=== PATIENT | male | born 1990 | race Caucasian/White ===

== ENCOUNTER → 2016-07-05 | Outpatient (CLI) | payer OTHER | LOC: FIMAGING 16:49 | PROVIDERS: ATTEND Otolaryngology | DX: Z09 Encounter for follow-up examination after completed treatment for conditions other than malignant neoplasm (principal); Z98.890 Other specified postprocedural states ==

== ENCOUNTER 2016-08-26 11:10 | Emergency (ER) | payer OTHER ==
--- NOTE | 2016-08-26 11:40 | EDPHY ---
H & P Time Seen by Provider: 08/26/16 11:26 HPI/ROS: CHIEF COMPLAINT: Right ankle and foot pain HISTORY OF PRESENT ILLNESS: 25-year-old male arrives via private vehicle complaining of acute right lateral ankle and right dorsal foot pain after he was bouldering at [employer] the fell approximately 2 feet and inverted his right foot. He felt 3 pops. Complaining of acute right dorsal foot pain and right lateral ankle pain. No proximal tibia or fibula pain. No calcaneal pain. No back pain. He landed on a padded service but did roll his ankle. PHYSICAL EXAM (Prior to examination, patient consented to physical exam, hands were washed and my usual and customary physical exam procedures followed) 1) GENERAL: Well-developed, well-nourished, alert and oriented. Appears to be in no acute distress. 2) HEAD: Normocephalic 3) HEENT: Pupils equal, round, reactive to light bilaterally. 4) LUNGS: Breathing comfortably. 5) MUSCULOSKELETAL: Lateral malleolus tender to palpation with soft tissue swelling noted. Dorsal midfoot tender to palpation with soft tissue swelling noted. proximal tibia and fibula nontender .5th MT nontender negative Wong test, compartments soft. Fibular head nontender 6) SKIN: intact 7) VASCULAR: DP,PT pulses and cap refill present and brisk DIFFERENTIAL DIAGNOSIS: in no particular order including but not limited to fracture, sprain, compartment syndrome Procedure: Crutches indications for crutch use discussed with patient. Patient fitted for crutches by ER staff. Observed ambulating with crutches. I think the patient has the capacity to safely use crutches. Usual and customary crutch walking precautions provided Procedure: Splint A Jj boot splint was applied by ER control systems technician. After application of the splint I returned and re-examined the patient. The splint was adequately immobilizing the joint and distal to the splint the patient's circulation and sensation were intact. Patient shows no signs of compartment syndrome. Was given orthopedic precautions. Smoking Status: Never smoked Constitutional: Initial Vital Signs Temperature (C) 36.7 C 08/26/16 11:22 Heart Rate 92 08/26/16 11:22 Respiratory Rate 17 08/26/16 11:22 Blood Pressure 124/82 H 08/26/16 11:22 O2 Sat (%) 96 08/26/16 11:22 O2 Delivery Mode Room Air Allergies/Adverse Reactions: codeine Allergy (Severe, Verified 08/26/16 11:21) Anaphylaxis Home Medications: Medication Instructions Recorded Afrin 04/19/15 Flonase Nasal Surrency 04/19/15 IMITREX 08/26/16 Ibuprofen [Motrin (*)] 800 mg PO Q6 #15 tab 08/26/16 MDM/Departure - [facility] Imaging Results: Imaging Impressions Ankle X-Ray 08/26/16 11:37 Impression: 1. Displaced lateral talar avulsion fracture. 2. No definite malleolar fracture. Foot X-Ray 08/26/16 11:37 Impression: Lateral talar avulsion fracture. Images reviewed myself Imaging: I viewed and interpreted images myself ED Course/Re-evaluation: There is a questionable small avulsion fracture lateral talus. Patient has been placed in Corona boot. Is neuro intact. Doubt fibular head injury/ fracture. Plan with follow up with Orthopedics. Soft compartments. Given usual and customary orthopedic and compartment syndrome precautions and instructions. - Depart Disposition: Home, Routine, Self-Care Clinical Impression: Right foot sprain Qualifiers: Encounter type: initial encounter Qualified Code(s): S93.601A - Unspecified sprain of right foot, initial encounter Closed right ankle fracture Qualifiers: Encounter type: initial encounter Qualified Code(s): S82.891A - Other fracture of right lower leg, initial encounter for closed fracture Condition: Good Instructions: Ankle Fracture (ED), Foot Sprain (ED) Additional Instructions: Return to the ER immediately if you experience discoloration, have worsening pain, numbness, tingling, or any other symptoms that concern you. If you received x-rays in the emergency department today, be advised, that ligamentous , tendon, muscular, and other non-bony injury cannot be fully ruled out. Try to keep your affected extremity elevated above the level of your chest, and keep cold packs on the affected area, for the next 48 hours. Prescriptions: Ibuprofen [Motrin (*)] 800 mg PO Q6 #15 tab Referrals: Angelo Jimenez MD [Medical Doctor] - 5-7 days, call for appt.
[2016-08-26 12:32] VITALS: BP 114/69; PULSE 84; RESP 16; TEMP 98.4; O2SAT 94
== END 2016-08-26 12:31 | disposition home or self-care (01) ==
DX: S92.151A Displaced avulsion fracture (chip fracture) of right talus, initial encounter for closed fracture (principal); S93.601A Unspecified sprain of right foot, initial encounter; W17.89XA Other fall from one level to another, initial encounter
CPT/HCPCS: L4386

== ENCOUNTER 2016-12-31 12:10 | Observation (INO) | payer OTHER ==
[2016-12-31] MEDS ORDERED: ONDANSETRON 4 MG/2 ML VIAL ONE ×2 (13:01→15:44)
--- NOTE | 2016-12-31 13:05 | EDPHY ---
HPI/HX/ROS/PE/MDM Narrative: CHIEF COMPLAINT: Abdominal pain HPI: The patient is a 26 y/o male with a history of varicocele correction at age 8 complaining of abdominal pain onset 6:00 AM this morning, 7 hours ago. He has had a cold but has been improving. He awoke this morning with an intense pain in his lower abdomen that has slowly been moving into his lower right quadrant. His pain does extend into the left side of his testicles. He has associated vomiting and chills. He is afebrile. He has only eaten a handful of cracker this morning. REVIEW OF SYSTEMS: Aside from elements discussed in the HPI, a comprehensive 10-point review of systems was reviewed and is negative. PMH: Varicocele correction at age 8 SOCIAL HISTORY: at bedside, lives in [facility] PHYSICAL EXAM: General:Patient is alert, in no acute distress. ENT:Eyes are normal to inspection. ENT inspection normal. Neck: Normal inspection. Full range of motion. Respiratory:No respiratory distress. Breath sounds normal bilaterally. Cardiovascular: Regular rate and rhythm. Normal cap refill. Abdomen: Moderate tenderness at McBurney's Point. There are no peritoneal signs. There are normal bowel sounds. Back: Normal to inspection. No tenderness to palpation. Skin: Normal color. No rash. Warm and dry. Extremities: Normal appearance. Full range of motion. Neuro: Oriented x3. Normal motor function. Normal sensory function. ED Course: Study: CT of the abdomen Indication: Abdominal pain Results: CT scan of the abdomen was obtained. The results of the study are: acute appendicitis The study was read by the radiologist, Dr. March. I viewed the images myself on the PACS system. 1437: I spoke with Dr. March, radiology, who confirms appendicitis. 1446: I spoke with Dr. Love, surgery, who will admit patient. 1447: I reassessed patient and informed him of the results of his workup. He will be admitted to Dr. Love for surgery. He agrees to this course of action. - Data Points Imaging Results: Imaging Impressions Abdomen CT 12/31/16 13:11 Impression: Acute appendicitis. Results called to Dr. Reginald Barillas at 2:30 PM. Imaging: Discussed imaging studies w/ mover helper Radiologist, I viewed and interpreted images myself Laboratory Results: Laboratory Results 12/31/16 13:00 12/31/16 13:00 12/31/16 12/31/16 12/31/16 13:00 13:00 12:56 WBC 17.69 10^3/uL H 10^3/uL (3.80-9.50) RBC 5.38 10^6/uL 10^6/uL (4.40-6.38) Hgb 16.9 g/dL g/dL (13.7-17.5) POC Hgb 17.7 gm/dL H gm/dL (13.7-17.5) Hct 47.1 % % (40.0-51.0) POC Hct 52 % H % (40-51) MCV 87.5 fL fL (81.5-99.8) MCH 31.4 pg pg (27.9-34.1) MCHC 35.9 g/dL g/dL (32.4-36.7) RDW 11.8 % % (11.5-15.2) Plt Count 224 10^3/uL 10^3/uL (150-400) MPV 10.1 fL fL (8.7-11.7) Neut % (Auto) 82.0 % H % (39.3-74.2) Lymph % (Auto) 12.3 % L % (15.0-45.0) [place] % (Auto) 4.8 % % (4.5-13.0) Eos % (Auto) 0.3 % L % (0.6-7.6) Baso % (Auto) 0.2 % L % (0.3-1.7) Nucleat RBC Rel Count 0.0 % % (0.0-0.2) Absolute Neuts (auto) 14.52 10^3/uL H 10^3/uL (1.70-6.50) Absolute Lymphs (auto) 2.17 10^3/uL 10^3/uL (1.00-3.00) Absolute Monos (auto) 0.85 10^3/uL H 10^3/uL (0.30-0.80) Absolute Eos (auto) 0.05 10^3/uL 10^3/uL (0.03-0.40) Absolute Basos (auto) 0.03 10^3/uL 10^3/uL (0.02-0.10) Absolute Nucleated RBC 0.00 10^3/uL 10^3/uL (0-0.01) Immature Gran % 0.4 % % (0.0-1.1) Immature Gran # 0.07 10^3/uL 10^3/uL (0.00-0.10) POC Sodium 137 mEq/L mEq/L (134-144) Sodium 139 mEq/L mEq/L (134-144) POC Potassium 3.7 mEq/L mEq/L (3.3-5.0) Potassium 4.1 mEq/L mEq/L (3.5-5.2) POC Chloride 98 mEq/L mEq/L (97-110) Chloride 98 mEq/L mEq/L (97-110) Carbon Dioxide 26 mEq/l mEq/l (22-31) Anion Gap 15 mEq/L mEq/L (8-16) POC BUN 14 mg/dL mg/dL (7-23) BUN 14 mg/dL mg/dL (7-23) Creatinine 0.9 mg/dL mg/dL (0.7-1.3) POC Creatinine 1.0 mg/dL mg/dL (0.7-1.3) Estimated GFR > 60 Glucose 80 mg/dL mg/dL (70-100) POC Glucose 90 mg/dL mg/dL (70-100) Calcium 9.9 mg/dL mg/dL (8.5-10.4) Medications Given: Ertapenem 1 gm/ Sodium (Chloride) 100 mls @ 200 mls/hr IV EDNOW ONE PRN Reason: Protocol Stop: 12/31/16 15:16 Last Admin: 12/31/16 15:03 Dose: 100 mls Discontinued Medications Sodium Chloride (Ns) 1,000 mls @ 0 mls/hr IV EDNOW ONE PRN Reason: Wide Open Stop: 12/31/16 13:15 Last Admin: 12/31/16 13:15 Dose: 1,000 mls Sodium Chloride (Ns) 1,000 mls @ 0 mls/hr IV EDNOW ONE PRN Reason: Wide Open Stop: 12/31/16 14:57 Last Admin: 12/31/16 14:57 Dose: 1,000 mls Ketorolac Tromethamine (Toradol) 15 mg IVP EDNOW ONE Stop: 12/31/16 13:11 Last Admin: 12/31/16 13:16 Dose: 15 mg Ondansetron HCl (Zofran) 4 mg IVP EDNOW ONE Stop: 12/31/16 13:15 Last Admin: 12/31/16 13:16 Dose: 4 mg Point of Care Test Results: 12/31/16 12:56 POC Sodium 137 POC Potassium 3.7 POC Chloride 98 POC BUN 14 POC Creatinine 1.0 POC Glucose 90 General Time Seen by Provider: 12/31/16 12:52 Initial Vital Signs: Initial Vital Signs Temperature (C) 37.0 C 12/31/16 12:24 Heart Rate 80 12/31/16 12:24 Respiratory Rate 18 12/31/16 12:24 Blood Pressure 127/78 H 12/31/16 12:24 O2 Sat (%) 99 12/31/16 12:24 O2 Delivery Mode Room Air Allergies/Adverse Reactions: codeine Allergy (Severe, Verified 12/31/16 12:27) Anaphylaxis Home Medications: Medication Instructions Recorded IMITREX 08/26/16 Ibuprofen [Motrin (*)] 800 mg PO Q6 #15 tab 08/26/16 Departure - Departure Disposition: [facility] Acute Clinical Impression: Acute appendicitis Qualifiers: Acute appendicitis type: unspecified acute appendicitis type Qualified Code(s) : K35.80 - Unspecified acute appendicitis Condition: Fair Report Scribed for: Reginald Barillas Report Scribed by: Soraida Mckeon Date of Report: 12/31/16 Time of Report: 13:29 Physician Review and Approval Statement: Portions of this note were transcribed by an ED scribe. I personally performed the history, physical exam, and medical decision making; and confirm the accuracy of the information in the transcribed note.
[2016-12-31] MEDS ORDERED: KETOROLAC 30 MG/1 ML SDV IVP ONE (13:10)
[2016-12-31 13:13] LABS: % IMMATURE GRANULYOCYTES 0.4 % (0.0-1.1); ABSOLUTE IMMATURE GRANULOCYTES 0.07 10^3/uL (0.00-0.10); ADD DIFF? NO; ADD MORPH? NO; ADD SCAN? NO; ATYPICAL LYMPHOCYTE FLAG 10 (0-99); FRAGMENT RBC FLAG 0 (0-99); HEMATOCRIT 47.1 % (40.0-51.0); HEMOGLOBIN 16.9 g/dL (13.7-17.5); LEFT SHIFT FLG 0 (0-99); LIPEMIA HEMOLYSIS FLAG 90 (0-99); MEAN CELL HEMOGLOBIN 31.4 pg (27.9-34.1); MEAN CELL HEMOGLOBIN CONCENTR. 35.9 g/dL (32.4-36.7); MEAN CELL VOLUME 87.5 fL (81.5-99.8); MEAN PLATELET VOLUME 10.1 fL (8.7-11.7); PLATELET CLUMPS FLAG 20 (0-99); PLATELET COUNT 224 10^3/uL (150-400); RED BLOOD CELL COUNT 5.38 10^6/uL (4.40-6.38); RED CELL DISTRIBUTION WIDTH 11.8 % (11.5-15.2)
[2016-12-31] MEDS ORDERED: ONDANSETRON 4 MG/2 ML VIAL IVP ONE (13:14)
[2016-12-31] MEDS ORDERED: NS 1,000 ML IV ONE ×2 (13:14→14:56)
[2016-12-31 13:49] LABS: ANION GAP 15 mEq/L (8-16); CALCIUM 9.9 mg/dL (8.5-10.4); CARBON DIOXIDE 26 mEq/l (22-31); CHLORIDE 98 mEq/L (97-110); CREATININE 0.9 mg/dL (0.7-1.3); GLOMERULAR FILTRATION RATE > 60; GLUCOSE 80 mg/dL (70-100); POTASSIUM 4.1 mEq/L (3.5-5.2); SODIUM 139 mEq/L (134-144)
[2016-12-31] MEDS ORDERED: IOPAMIDOL (ISOVUE-300) 100 ML BTL ONE (13:59)
[2016-12-31] MEDS ORDERED: ERTAPENEM 1 GM in NS 100 ML IV ONE (14:47)
[2016-12-31] MEDS ORDERED: ceFAZolin 1 GM/5 ML SYR ONE (15:27)
[2016-12-31] MEDS ORDERED: HEPARIN 5,000 UNIT/0.5 ML SYR ONE (15:28)
[2016-12-31] MEDS ORDERED: MIDAZOLAM 2 MG/2 ML VIAL IVP ONE (15:41)
--- NOTE | 2016-12-31 15:41 | PDANEPAE ---
ANE History of Present Illness acute appendicitis ANE Past Medical History - Cardiovascular History Hx Hypertension: No Hx Arrhythmias: No Hx Chest Pain: No Hx Coronary Artery / Peripheral Vascular Disease: No Hx CHF / Valvular Disease: No Hx Palpitations: No - Pulmonary History Hx COPD: No Hx Asthma/Reactive Airway Disease: No Hx Recent Upper Respiratory Infection: No Hx Oxygen in Use at Home: No Hx Sleep Apnea: No - Endocrine History Hx Diabetes: No Hypothyroid: No Hyperthyroid: No Obesity: no ANE Review of Systems Review of systems is: negative Review of Systems: - Exercise capacity Exercise capacity: >=4 METS ANE Patient History - Allergies Allergies/Adverse Reactions: codeine Allergy (Severe, Verified 12/31/16 12:27) Anaphylaxis - Home Medications Home medications: home medication list seen and reviewed Home Medications: IMITREX 08/26/16 [Last Taken Unknown] - Anes Hx Anes Hx: no prior problems - Smoking Hx Smoking Status: Never smoked - Alcohol Use Alcohol Use: None ANE Labs/Vital Signs - Labs Result Diagrams: 12/31/16 13:00 12/31/16 13:00 - Vital Signs Blood Pressure: 132/79 Heart Rate: 84 Respiratory Rate: 18 O2 Sat (%): 95 Height: 185.42 cm Weight: 74.843 kg ANE Physical Exam - Airway Neck exam: FROM Mallampati Score: Class 2 Mouth exam: normal dental/mouth exam - Pulmonary Pulmonary: no respiratory distress - Cardiovascular Cardiovascular: regular rate and rhythym - ASA Status ASA Status: I, E ANE Anesthesia Plan Anesthesia Plan: general endotracheal anesthesia
[2016-12-31] MEDS ORDERED: DEXAMETHASONE 4 MG/ML VIAL ONE (15:44)
[2016-12-31] MEDS ORDERED: fentaNYL 100 MCG/2 ML INJ ONE ×3 (15:44→17:17)
[2016-12-31] MEDS ORDERED: ROCURONIUM 50 MG/5 ML VIAL ONE (15:44)
[2016-12-31] MEDS ORDERED: LIDOCAINE 2% 5 ML SDV ONE (15:44)
[2016-12-31] MEDS ORDERED: SUGAMMADEX SODIUM 200 MG/2 ML VIAL IVP ONE (15:44)
[2016-12-31] MEDS ORDERED: PROPOFOL 200 MG/20 ML VIAL ONE (15:44)
[2016-12-31] MEDS ORDERED: MIDAZOLAM 2 MG/2 ML VIAL ONE (15:54)
[2016-12-31] MEDS ORDERED: ONDANSETRON 4 MG/2 ML VIAL IVP PRN ×2 (16:02→17:11)
[2016-12-31] MEDS ORDERED: NON-FORMULARY NEW DRUG (Sumatriptan Succinate [Imitrex] 100 MG) PO PRN (16:06)
--- NOTE | 2016-12-31 16:08 | GHP ---
[f rep st] PREOP HISTORY AND PHYSICAL DATE OF ADMISSION: 12/31/2016 ADMITTING DIAGNOSIS: Acute appendicitis. HISTORY OF PRESENT ILLNESS: The patient is a 26-year-old male who was awoken from sleep this morning due to a band-like pain that extended across his abdomen from [id number]. As the morning wore on, the pain became more localized to the right lower quadrant. He was not hungry and had only saltines for breakfast. He had a small amount of water at noon. He had nausea during the course of the morning and did vomit on admission to the ER. He is known to have irritable bowel syndrome. He does have a recent upper respiratory tract infection. He chronically has loose stools because of his irritable bowel but has noticed no change in his stool pattern. He has not had had any antibiotics or travel outside the [place] in the last 6 months. He has had no prior similar symptoms. He did have an open surgery for a varicocele and a right undescended testicle. SOCIAL HISTORY: He smoked from ages 16 to 20 at 1 pack per week. He does not drink. After having his wisdom tooth extraction, he became somewhat blue and hypoxic. It was attributed to codeine but that remains unclear. MEDICATIONS: He takes Imitrex 100 mg as needed for migraine headaches. PAST SURGICAL HISTORY: Include a tonsillectomy and wisdom tooth extraction. The wisdom tooth extraction was the event where he had the hypoxia. He also has had a complication of a chronic sinus issue since that time. There is no history of rheumatic fever, tuberculosis, hepatitis, or transfusions. REVIEW OF SYSTEMS: He has had 2 concussions. Review of systems is otherwise quite negative. There are no limits on his activities. No history of steroid use. PHYSICAL EXAMINATION: GENERAL: He is awake and alert. HEENT: His skull is normocephalic and atraumatic. NECK: Unremarkable cervically. There are no carotid bruits. There is no thyroid enlargement. LYMPHATICS: There is no cervical, supraclavicular, axillary or inguinal lymphadenopathy. LUNGS: Clear to auscultation. CARDIAC: Exam shows S1, S2 to be normal. Normal split of S2 without murmurs, rubs, or gallops. ABDOMEN: Hypoactive bowel sounds. It is tender with cough at 3 at McBurney's point. Psoas and obturator signs are negative. To palpation, the abdomen is 1 on a scale of 1-10 in the left upper quadrant, 1 in the mid abdomen, 1 in the left lower quadrant, 1 in the epigastrium, 2 at the periumbilical region, 1 at the suprapubic area, 1 at the right upper quadrant, 5 at the right mid abdomen, 1 at the right lower quadrant and 1 over the iliac crest. EXTREMITIES: His legs are unremarkable. His upper extremities are unremarkable. LABORATORY DATA: His white count is 17.7 with 82% neutrophils. A CT of his abdomen shows an acute appendicitis. His initial temperature was 37 and has now dropped to 36.6. Blood pressure 132/ 79 at 96. Respirations 18. Sat is 95% on room air. I have explained the pathophysiology of appendicitis and what to expect with surgery. He understands the planned procedure and agrees to proceed as outlined. /[id number]/MODL MTDD
[2016-12-31] MEDS ORDERED: ACETAMINOPHEN 325 MG TAB PO SCH (16:15)
[2016-12-31] MEDS ORDERED: LR 1,000 ML IV SCH (16:30)
[2016-12-31] MEDS ORDERED: KETOROLAC 30 MG/1 ML SDV ONE (16:54)
[2016-12-31] MEDS ORDERED: PROMETHAZINE HCL 25 MG/ML INJ IVP PRN (17:11)
[2016-12-31] MEDS ORDERED: ACETAMINOPHEN 500 MG TAB PO PRN (17:11)
[2016-12-31] MEDS ORDERED: ALBUTEROL 3 ML DEYVIAL IH PRN (17:11)
[2016-12-31] MEDS ORDERED: METOCLOPRAMIDE 10 MG/2 ML VIAL IVP PRN (17:11)
[2016-12-31] MEDS ORDERED: LR 500 ML IV PRN (17:11)
[2016-12-31] MEDS ORDERED: HYDROmorphONE/DILAUDID 1 MG/ML INJ IVP PRN (17:11)
[2016-12-31] MEDS ORDERED: NALOXONE HCL 0.4 MG/ML INJ IVP PRN (17:11)
--- NOTE | 2016-12-31 17:11 | POSTANESTH ---
Post Anesthetic Evaluation Cardiovascular Status: Normal, Stable Respiratory Status: Normal, Stable Level of Consciousness/Mental Status: Can Participate in Eval Pain Control: Adequate, Prn Tx Ordered Nausea/Vomiting Control: Adequate, Prn Tx Ordered Complications Possibly Related to Anesthesia: None Noted
--- NOTE | 2016-12-31 17:18 | POSTOPPROG ---
Post Op Note Date of Operation: 12/31/16 Surgeon: Jw Love Anesthesia: GET(General Endotracheal) Pre-op Diagnosis: acute unruptured appendicitis Post-op Diagnosis: acute unruptured appendicitis Indication: acute unruptured appendicitis Procedure: laparoscopic appendectomy Findings: acute unruptured appendicitis Inf/Abcess present in the surg proc area at time of surgery?: No EBL: Minimal Total fluids administered: 650 in OR, 1000 cc in ER Complications: none Specimen(s): appendix
[2016-12-31] MEDS: fentaNYL 100 MCG/2 ML INJ IVP PRN ×2 (17:31→17:37)
[2016-12-31] MEDS: KETOROLAC 15 MG/1 ML SDV IVP SCH ×2 (18:57→23:40)
[2016-12-31 19:31] VITALS: RESP 16
[2016-12-31] MEDS: HYDROmorphONE/DILAUDID 2 MG TAB PO PRN ×2 (19:49→21:17)
[2016-12-31] MEDS: ACETAMINOPHEN 500 MG TAB PO SCH (21:29)
[2016-12-31 23:32] LABS: COLOR COLORLESS; LEUKOCYTE ESTERASE,URINE NEGATIVE (NEGATIVE); NITRITE,URINE NEGATIVE (NEGATIVE)
--- NOTE | 2017-01-01 05:39 | GOP ---
[f rep st] OPERATIVE REPORT DATE OF OPERATION: 12/31/2016 SURGEON: Jw Love MD PREOPERATIVE DIAGNOSIS: Acute appendicitis. POSTOPERATIVE DIAGNOSIS: Acute unruptured appendicitis. PROCEDURE PERFORMED: Laparoscopic appendectomy. FINDINGS: Acute unruptured appendicitis. SPECIMENS: Appendix. ESTIMATED BLOOD LOSS: Minimal. INDICATIONS: Acute unruptured appendicitis. DESCRIPTION OF PROCEDURE: The patient is placed on the operating table in supine position. After induction of adequate general endotracheal anesthesia the abdomen is carefully clipped, prepped and draped. A curvilinear incision is planned at the umbilicus, a transverse incision is planned in the suprapubic region, and an oblique incision is planned in the left lower quadrant. The skin is incised at all points and dissection is continued with Bovie electrocautery in the subcutaneous fat in the suprapubic and left lower quadrant incisions. A spreading technique is used to expose the right and left anterior rectus sheath. The fascia is divided in the midline. A pursestring of 0 - PDS was placed. The peritoneum is entered. The Bry 12 mm disposable trocar is introduced. Intraabdominal insufflation is carried out to 15 mmHg. The patient is placed in a 20-degree Trendelenburg position and rotated 5 degrees to the left. The 5 mm port is placed under direct vision. The suprapubic port is placed under direct vision. In examining the pelvis, there is a translucent fluid present. The appendix is embedded in inflammatory adhesions in the right lower quadrant. These are carefully lysed using a Harmonic scalpel, going right alongside the appendix to minimize injury to any adjacent structures. The dissection is continued down to the appendical base on the cecum. A 35 mm powered Endo-RAKESH stapler is used to transect the appendix with a cuff of cecum. The specimen is removed in an EndoCatch bag. Pneumoperitoneum is reestablished. There is a small bleeding point at the mesenteric edge of the appendiceal staple line. This is elevated with a right- angle clamp and an Endoloop is placed around it. This controls the bleeding completely. Irrigation is carried out with heparin and Ancef-containing irrigant. The small bowel was run for a distance of 3 feet. Mesenteric adenitis was not seen. A Meckel's diverticulum was not seen. Ports are now removed under direct vision. A simple [id number] suture is placed in the midline of the infraumbilical fascial incision. The pursestring is tied first, then a simple [id number] suture is tied. The subcutaneous tissue is well irrigated. Hemostasis is found to be excellent. All skin incisions are closed in inverted simple sutures of #4-0 Vicryl. Mastisol and Steri-Strips were placed. Band- Aids are positioned. The patient was transferred to recovery in stable and satisfactory condition. FLUIDS: 1000 cc in the ER and 650 cc in the OR. COMPLICATIONS: None. /[id number]/MODL MTDD
[2017-01-01] MEDS: KETOROLAC 15 MG/1 ML SDV IVP SCH (05:58)
[2017-01-01] MEDS: ACETAMINOPHEN 500 MG TAB PO SCH (06:01)
[2017-01-01 07:23] VITALS: BP 123/83; PULSE 61; TEMP 97.6; O2SAT 98
[2017-01-01] MEDS: HYDROmorphONE/DILAUDID 2 MG TAB PO PRN ×2 (07:23→11:39)
--- NOTE | 2017-01-01 11:14 | SOAPPROG ---
SOAP Progress Note Assessment/Plan: POD#1 01/01/17 11:05 Assessment: Doing well. eating, passing flatus, pain controlled Plan: Home today Subjective: No complaints Objective: Vital Signs Temp Pulse Resp BP Pulse Ox 36.4 C 61 16 123/83 H 98 01/01/17 07:15 01/01/17 07:15 01/01/17 07:15 01/01/17 07:15 01/01/17 07:15 12/31/16 01/01/17 01/02/17 05:59 05:59 05:59 Intake Total 4150 Output Total 1612 Balance 2538 - Time Spent With Patient Time Spent With Patient: 15 Physical Exam - Physical Exam General Appearance: WD/WN, alert, no apparent distress Neck: non-tender, full range of motion, supple Respiratory: lungs clear, normal breath sounds, respiratory distress Cardiac/Chest: regular rate, rhythm Abdomen: non-tender, soft Male Genitalia: deferred Rectal: deferred Back: Normal inspection Skin: normal color, warm/dry Neuro/Psych: no motor/sensory deficits, alert, normal mood/affect, oriented x 3 ICD10 Worksheet Patient Problems: Problems Problem Status Onset Acute appendicitis Acute
--- NOTE | 2017-01-01 12:05 | GDS ---
[f rep st] DISCHARGE SUMMARY SURGERY PERFORMED: Laparoscopic appendectomy. CONDITION ON DISCHARGE: Good. DISPOSITION: Home. MEDICATIONS: He is to take a multivitamin daily for the next 3 weeks. He is to continue his sumatri ptan for his migraine headaches. He will take Tylenol 1000 mg every 8 hours. He will take Toradol 1 0 mg every 6 hours. He will use Dilaudid 2 mg every 4 hours as needed for severe pain. DIET: Unrestricted, but I have suggested he avoid constipating foods such as bananas, rice, applesau ce, and cheese. ACTIVITY: For the next 3 weeks, he is to lift less than 10 pounds. He is to shower only. He is to keep his Steri-Strips in place. FOLLOWUP: He will follow up with Dr. Kwame Lane in 10 days. HOSPITAL COURSE: The patient was admitted and taken to the operating room where an unruptured acute appendicitis was identified and removed. The patient tolerated the procedure well. He is doing well on postop day #1, taking a regular diet, passing gas, and is now comfortable. /[id number]/MODL
== END 2017-01-01 11:50 | disposition home or self-care (01) ==
LOC: FOB 18:38
PROVIDERS: ADMIT Surgery; ATTEND Surgery
PROC: 0DTJ4ZZ Resection of Appendix, Percutaneous Endoscopic Approach (ICD-10-PCS; principal; 2016-12-31 16:00)
DX: K35.80 Unspecified acute appendicitis (principal); G43.909 Migraine, unspecified, not intractable, without status migrainosus
CPT/HCPCS: 82947-QW; G0378; J1100; J1335; J1642; J1885; J2250; J2405; J2704; J3010; Q9967